=== PATIENT | female | born 1945 | race Caucasian/White ===

== ENCOUNTER → 2017-10-22 | Outpatient (CLI) | payer MEDICARE ==
[~2017-10-22] MED LIST: GADOBENATE DIMEGLUMINE 1 ML IV ONE
[2017-10-22 09:04] LABS: BLOOD UREA NITROGEN 9 mg/dL (7-26); BUN/CREATININE RATIO 12 (6-25); CREATININE, SERUM 0.75 mg/dL (0.57-1.11); EST GLOMERULAR FILTRATION RATE > 60 ML/MIN (60-)
--- NOTE | 2017-10-22 11:50 | Diagnostic Imaging Report ---
EXAMINATION: MRI of the brain with and without contrast HISTORY: Dizziness, headaches, also inability to talk COMPARISON: None. TECHNIQUE: Pre-contrast: Sagittal T2; axial T1-IR, T2, MPGR, DWI, FLAIR; Post-contrast: axial and coronal T1. Intravenous contrast: 10 mL of MultiHance. IMAGE QUALITY: Adequate. FINDINGS: Parenchyma: 1. Few scattered bilateral supra and infratentorial T2 and FLAIR hyperintense foci, most likely age-appropriate mild chronic microvascular ischemic changes. 2. No mass or hemorrhage. No acute or chronic vascular insult. No abnormal enhancement Skull: No abnormal signal intensity or enhancement. Major arteries: Expected flow voids present. Dural sinuses: Expected flow voids present. Ventricles: No hydrocephalus or displacement. Subarachnoid spaces: No abnormal signal intensity or enhancement. Brain volume: Normal for age. Foramen magnum: No mass, Chiari malformation, or basilar invagination. Sella: No gross mass. Paranasal/mastoid sinuses: Unremarkable. IMPRESSION: Mild chronic microvascular ischemic changes, otherwise no intracranial abnormalities, particularly no mass, hydrocephalus or infarct. Signed by: Dr. Yanet Peguero M.D. on 10/22/2017 11:46 AM
== END ==
LOC: MRI 08:13
PROVIDERS: ATTEND Student in an Organized Health Care Education/Training Program
DX: R68.89 Other general symptoms and signs (principal)
CPT/HCPCS: 36415; 70553; 82565; 84520

== ENCOUNTER → 2018-04-16 | Outpatient (CLI) | payer MEDICARE ==
[~2018-04-16] MED LIST changes: -GADOBENATE DIMEGLUMINE 1 ML IV ONE; +IOPAMIDOL 370 MG/ML 200 ML INFUS..BTL INJ ONE; +SODIUM CHLORIDE 0.9% 100 ML 100 ML ONE
[2018-04-16 08:06] LABS: BLOOD UREA NITROGEN 11 mg/dL (7-26); BUN/CREATININE RATIO 14 (6-25); CREATININE, SERUM 0.77 mg/dL (0.57-1.11); EST GLOMERULAR FILTRATION RATE > 60 ML/MIN (60-)
--- NOTE | 2018-04-16 11:04 | Diagnostic Imaging Report ---
History:Patient states she has been blacking out, Comparison studies:None Technique: Axial images were obtained from the thoracic inlet. Coronal and sagittal images reconstructed from the axial data. Intravenous contrast: 100 cc of Omnipaque 300. Findings: Percentage of stenosis will be based on the NASCET criteria Aortic arch and major vessels: Patent. Common origin of the brachiocephalic trunk and left common carotid artery. Nonstenotic atherosclerotic calcifications at the origin of the right subclavian artery Common carotid arteries: Patent. No abnormalities. Right internal carotid artery: Patent. No abnormalities. Left internal carotid artery: Patent. Nonstenotic atherosclerotic calcifications at the left bulb. Right vertebral artery: Patent. No abnormalities. Left vertebral artery: Patent. Less than 10% stenosis of the intracranial V4 segment. The remaining vertebral artery is unremarkable. Basilar artery: Patent. No abnormalities. Posterior cerebral arteries: Patent. No abnormalities. Hypoplastic right P1 with origin on the right. Anatomical variants: Acom: Patent . Pcoms: Patent. Vertebral arteries: Col-dominant Mild mucosal thickening of the right maxillary sinus. IMPRESSION: Cervical CTA: 1. Nonstenotic calcification of the left carotid bulb, the remaining vasculature appears unremarkable Intracranial CTA: 1. No hemodynamically significant stenosis of the intracranial circulation, no other abnormality. Signed by: DR Dominick Saunders M.D. on 04/16/2018 11:01 AM
== END ==
LOC: CT 07:27
PROVIDERS: ATTEND Student in an Organized Health Care Education/Training Program
DX: G43.109 Migraine with aura, not intractable, without status migrainosus (principal); R68.89 Other general symptoms and signs
CPT/HCPCS: 36415; 70496; 70498; 82565; 84520; Q9967

== ENCOUNTER → 2018-12-08 | Day surgery (SDC) | payer MEDICARE ==
[2018-12-06 12:03] LABS: BASOPHILS % 0.4 % (0.0-1.0); EOSINOPHILS # (AUTO) 0.1 (0.0-0.4); EOSINOPHILS % 1.4 % (0.0-6.0); HEMATOCRIT 41.3 % (34.2-44.1); HEMOGLOBIN 13.8 g/dL (12.0-16.0); LYMPHOCYTES # (AUTO) 1.2 (1.0-3.2); LYMPHOCYTES % 17.1 % (18.0-39.1); MEAN CORPUSCULAR HEMOGLOBIN 30.7 pg (28-32); MEAN CORPUSCULAR HGB CONC 33.4 g/dL (31-35); MONOCYTES # (AUTO) 0.7 (0.2-0.8); MONOCYTES % 9.2 % (4.4-11.3); NEUTROPHILS # (AUTO) 5.2 (2.1-6.9); NEUTROPHILS % 71.6 % (38.7-80.0); PLATELET COUNT 246 x10e3/uL (140-360); RED BLOOD COUNT 4.49 x10e6/uL (3.6-5.1); RED CELL DISTRIBUTION WIDTH 12.1 % (11.7-14.4)
[2018-12-06 12:16] LABS: INR 0.87; PROTHROMBIN TIME 12.3 seconds (11.9-14.5)
[2018-12-06 12:17] LABS: PARTIAL THROMBOPLASTIN TIME 24.7 seconds (23.8-35.5)
[2018-12-06 12:26] LABS: ALANINE AMINOTRANSFERASE 16 IU/L (0-55); ALBUMIN 4.4 g/dL (3.5-5.0); ALBUMIN/GLOBULIN RATIO 1.3 (0.8-2.0); ALKALINE PHOSPHATASE 56 IU/L (40-150); BLOOD UREA NITROGEN 8 mg/dL (7-26); BUN/CREATININE RATIO 11 (6-25); CALCIUM 9.7 mg/dL (8.4-10.2); CARBON DIOXIDE 29 mmol/L (22-29); CHLORIDE 98 mmol/L (98-107); CREATININE, SERUM 0.72 mg/dL (0.57-1.11); EST GLOMERULAR FILTRATION RATE > 60 ML/MIN (60-); GLUCOSE 94 mg/dL (74-118); SODIUM 135 mmol/L (136-145)
--- NOTE | 2018-12-06 12:46 | Diagnostic Imaging Report ---
EXAM: CHEST 2 VIEWS, PA and lateral DATE: 12/06/2018 Time stamp on exam: 11:56 AM INDICATION: Preoperative COMPARISON: None FINDINGS: LINES/TUBES: None LUNGS: No consolidations or edema. Lungs are hyperexpanded. Prominent nipple shadow overlies the right lung base. PLEURA: No effusions or pneumothorax. HEART AND MEDIASTINUM: Normal size and contour. BONES AND SOFT TISSUES: No acute findings. Multiple right axillary vascular clips. IMPRESSION: No acute thoracic abnormality. Signed by: Dr. Sami Land DO on 12/06/2018 12:43 PM
[~2018-12-08] VITALS: Ht 167.6 cm; Wt 49.9 kg
[2018-12-08] VITALS (16 sets, daily range): BP systolic 99–148; BP diastolic 49–88
[~2018-12-08] MED LIST changes: +ACETAMINOPHEN 325 MG TAB ONE; +ASPIRIN EC81 MG PO; +CALCIUM PO; +CARVEDILOL3.125 MG PO; +CENTRUM SILVER1 EAC3 PO; +DIGOXIN125 MCG PO; +DIPHENHYDRAMINE HCL 25 MG CAP ONE; +FENTANYL CITRATE/PF 100MCG/2 ML INJ ONE; +HEPARIN SOD/SOD CHLORIDE 2,000 ML ONE; +LIDOCAINE HCL 2% LOCAL 20 ML VIAL ONE; +LISINOPRIL2.5 MG PO; +MIDAZOLAM HCL 2 MG/2 ML VIAL ONE; +MORPHINE SULFATE INJ 4 MG/ML INJ 1ML ONE; +POTASSIUM PO; +RETAINE MGD EY1 EACH OP; +SIMVASTATIN20 MG PO; +SODIUM CHLORIDE 0.45% 1,000 ML ONE; -SODIUM CHLORIDE 0.9% 100 ML 100 ML ONE; +SODIUM CHLORIDE 0.9% 1000ML 1,000 ML ONE; +TRAVATAN Z5 ML OP; +VERAPAMIL HCL 2.5 MG/ML 2 ML VIAL ONE; +[UNRECOGNIZED DRUG - OTHER] OP
--- OUTSIDE RECORDS SUMMARY | 2018-12-08 07:50 | XMS REPORT | Continuity of Care Document ---
Author Author [facility] Interface Address Unknown Phone Unavailable Problems Problem Status Onset Date Classification Date Reported Comments Source Acute upper respiratory infection 12/04/2017 Diagnosis 12/09/2017 [facility] Body mass index less than 20 12/04/2017 Diagnosis 12/09/2017 [facility] At risk for falls 12/04/2017 Diagnosis 12/09/2017 [facility] Depression screening 12/04/2017 Diagnosis 12/09/2017 [facility] Herpes zoster 03/25/2017 Diagnosis 12/09/2017 [facility] Pneumococcal vaccination 10/03/2016 Diagnosis 12/09/2017 [facility] Vertigo 10/03/2016 Problem 12/09/2017 [facility] Mixed hyperlipidemia 06/26/2016 Diagnosis 12/09/2017 [facility] Mixed Hyperlipidemia 06/26/2016 Problem 12/09/2017 [facility] Tachycardia 06/26/2016 Problem 12/09/2017 [facility] Adult health examination 06/12/2016 Diagnosis 12/09/2017 [facility] Pure hypercholesterolemia 06/12/2016 Diagnosis 12/09/2017 [facility] Migraine with aura 06/12/2016 Diagnosis 12/09/2017 [facility] Pure Hypercholesterolemia 06/12/2016 Problem 12/09/2017 [facility] Migraine with Aura 06/12/2016 Problem 12/09/2017 [facility] Medications Medication Details Route Status Patient Instructions Ordering Provider Order Date Source Diltiazem Hydrochloride 60 MG Oral Tablet diltiazem 60 mg tablet Active 12/04/2017 [facility] Simvastatin 20 MG Oral Tablet simvastatin 20 mg tablet Take 1 tablet every day by oral route in the evening. Active 12/04/2017 [facility] Acyclovir 0.05 MG/MG Topical Ointment acyclovir 5 % topical ointment 1-2 TIMES A DAY Active 04/01/2017 [facility] Triamcinolone Acetonide 1 MG/ML Topical Cream triamcinolone acetonide 0.1 % topical cream BID Active 04/01/2017 [facility] 0.5 ML Bordetella pertussis filamentous hemagglutinin vaccine, inactivated 0.01 MG/ML / Bordetella pertussis fimbriae 2/3 vaccine, inactivated 0.01 MG/ML / Bordetella pertussis pertactin vaccine, inactivated 0.006 MG/ML / Bordetella pertussis toxoid vaccine, inactivated 0.005 MG/ML / diphtheria toxoid vaccine, inactivated 4 UNT/ML / tetanus toxoid vaccine, inactivated 10 UNT/ML Prefilled Syringe [Adacel] Adacel (Tdap Adolesn/Adult)(PF)2 Lf-(2.5-5-3-5)-5 Lf/0.5 mL IM syringe Active 03/25/2017 [facility] gabapentin 100 MG Oral Capsule gabapentin 100 mg capsule Active 03/25/2017 [facility] Meclizine Hydrochloride 12.5 MG Oral Tablet meclizine 12.5 mg tablet Active 03/25/2017 [facility] 0.65 ML Varicella-Zoster Virus Vaccine Live ([employer] strain [id number] UNT/ML Injection [Zostavax] Zostavax (PF) 19,400 unit/0.65 mL subcutaneous suspension Active 03/25/2017 [facility] Aspirin 325 MG / butalbital 50 MG / Caffeine 40 MG / Codeine Phosphate 30 MG Oral Capsule [Ascomp] Ascomp with Codeine 30 mg-50 mg-325 mg- 40 mg capsule Take 1 capsule as needed by oral route. Active 06/26/2016 [facility] 24 HR Diltiazem Hydrochloride 120 MG Extended Release Oral Capsule [Cartia] Cartia XT 120 mg capsule,extended release Active 06/12/2016 [facility] 24 HR Diltiazem Hydrochloride 180 MG Extended Release Oral Capsule [Cartia] Cartia XT 180 mg capsule,extended release Active 06/12/2016 [facility] Cyclobenzaprine hydrochloride 5 MG Oral Tablet cyclobenzaprine 5 mg tablet Active 06/12/2016 [facility] Diclofenac Sodium 0.03 MG/MG Topical Gel diclofenac 3 % topical gel Active 06/12/2016 [facility] meloxicam 15 MG Oral Tablet meloxicam 15 mg tablet Active 06/12/2016 [facility] Ofloxacin 3 MG/ML Otic Solution ofloxacin 0.3 % ear drops Active 06/12/2016 [facility] Benadryl Benadryl 1 TAB EVERY HS Active [facility] benzonatate 200 MG Oral Capsule benzonatate 200 mg capsule Take 1 capsule 3 times a day by oral route as needed for 10 days. Active [facility] Aspirin 325 MG / butalbital 50 MG / Caffeine 40 MG Oral Capsule [id number]-zacbipxm 50 mg-325 mg-40 mg capsule Active [facility] Centrum Silver Centrum Silver 1 TAB EVERY DAY Active [facility] cetirizine hydrochloride 10 MG Oral Tablet cetirizine 10 mg tablet Take 1 tablet every day by oral route. Active [facility] coenzyme Q10 200 MG Oral Capsule Co Q-10 200 mg capsule QD Active [facility] Diltiazem Hydrochloride 30 MG Oral Tablet diltiazem 30 mg tablet Take 1 tablet 3 times a day by oral route. Active [facility] Fish Oil Fish Oil QD Active [facility] Fluticasone propionate 0.05 MG/ACTUAT Metered Dose Nasal [place] fluticasone 50 mcg/actuation nasal spray,suspension [place] 1 spray every day by intranasal route. Active [facility] Longs Adult Low Strength ASA 81 mg tablet,delayed release Longs Adult Low Strength ASA 81 mg tablet,delayed release Take 1 tablet every day by oral route. Active [facility] Melatonin 10 MG Oral Tablet melatonin 10 mg tablet Take 1 tablet every day by oral route as needed. Active [facility] potassium 99 mg tablet potassium 99 mg tablet QD Active [facility] travoprost 0.04 MG/ML Ophthalmic Solution Travatan (with benzalkonium) 0.004 % eye drops INSTILL 1 DROP INTO EACH EYE(S) BY OPHTHALMIC ROUTE ONCE DAILY Active [facility] lifitegrast 50 MG/ML Ophthalmic Solution [Xiidra] Xiidra 5 % eye drops in a dropperette Active [facility] Azithromycin 250 MG Oral Tablet Zithromax Z-Mario 250 mg tablet TAKE 2 TABLETS (500 MG) BY ORAL ROUTE ONCE DAILY FOR 1 DAY THEN 1 TABLET (250 MG) BY ORAL ROUTE ONCE DAILY FOR 4 DAYS Active [facility] Allergies, Adverse Reactions, Alerts Substance Category Reaction Severity Reaction type Status Date Reported Comments Source Vicodin Allergy to substance 06/12/2016 [facility] Immunizations Immunization Date Given Site Status Last Updated Comments Source influenza, high dose seasonal 06/21/2017 completed [facility] pneumococcal conjugate PCV 13 10/03/2016 completed [facility] influenza, high dose seasonal 06/02/2016 completed [facility] pneumococcal, unspecified formulation 04/21/2015 completed [facility] zoster 04/21/2015 [facility] Tdap 09/10/2005 [facility] Results Order Name Results Value Reference Range Date Interpretation Comments Source Comprehensive metabolic 1999 panel - Serum or Plasma glucose 93 mg/dL 65 - 99 03/26/2017 [facility] Comprehensive metabolic 1999 panel - Serum or Plasma urea nitrogen (BUN) 7 mg/dL 7 - 25 03/26/2017 [facility] Comprehensive metabolic 1999 panel - Serum or Plasma creatinine 0.65 mg/dL 0.60 - 0.93 03/26/2017 [facility] Comprehensive metabolic 1999 panel - Serum or Plasma eGFR non-afr. cymro 90 mL/min/1.73m2 > or=60 03/26/2017 [facility] Comprehensive metabolic 1999 panel - Serum or Plasma eGFR 104 mL/min/1.73m2 > or=60 03/26/2017 [facility] Comprehensive metabolic 1999 panel - Serum or Plasma BUN/creatinine ratio not applicable 6 - 22 03/26/2017 [facility] Comprehensive metabolic 1999 panel - Serum or Plasma sodium 142 mmol/L 135 - 146 03/26/2017 [facility] Comprehensive metabolic 1999 panel - Serum or Plasma potassium 4.6 mmol/L 3.5 - 5.3 03/26/2017 [facility] Comprehensive metabolic 1999 panel - Serum or Plasma chloride 106 mmol/L 98 - 110 03/26/2017 [facility] Comprehensive metabolic 1999 panel - Serum or Plasma carbon dioxide 30 mmol/L 20 - 31 03/26/2017 [facility] Comprehensive metabolic 1999 panel - Serum or Plasma calcium 9.6 mg/dL 8.6 - 10.4 03/26/2017 [facility] Comprehensive metabolic 1999 panel - Serum or Plasma protein, total 6.4 g/dL 6.1 - 8.1 03/26/2017 [facility] Comprehensive metabolic 1999 panel - Serum or Plasma albumin 4.4 g/dL 3.6 - 5.1 03/26/2017 [facility] Comprehensive metabolic 1999 panel - Serum or Plasma globulin 2.0 g/dL_(calc) 1.9 - 3.7 03/26/2017 [facility] Comprehensive metabolic 1999 panel - Serum or Plasma albumin/globulin ratio 2.2 (calc) 1.0 - 2.5 03/26/2017 [facility] Comprehensive metabolic 1999 panel - Serum or Plasma bilirubin, total 0.3 mg/dL 0.2 - 1.2 03/26/2017 [facility] Comprehensive metabolic 1999 panel - Serum or Plasma alkaline phosphatase 52 U/L 33 - 130 03/26/2017 [facility] metabolic 1999 panel - Serum or Plasma AST 15 U/L 10 - 35 03/26/2017 [facility] metabolic 1999 panel - Serum or Plasma ALT 9 U/L 6 - 29 03/26/2017 [facility] Lipid 1995 panel - Serum or Plasma cholesterol, total 174 mg/dL 125 - 200 03/26/2017 [facility] Lipid 1995 panel - Serum or Plasma HDL cholesterol 53 mg/dL > or=46 03/26/2017 [facility] Lipid [facility] panel - Serum or Plasma triglycerides 160 mg/dL <150 03/26/2017 [facility] Lipid 1995 panel - Serum or Plasma LDL-cholesterol 89 mg/dL_(calc) <130 03/26/2017 [facility] Lipid [facility] panel - Serum or Plasma chol/HDLC ratio 3.3 (calc) < or=5.0 03/26/2017 [facility] Lipid 1995 panel - Serum or Plasma non HDL cholesterol 121 mg/dL_(calc) 03/26/2017 [facility] Hemoglobin A1c/Hemoglobin.total in Blood hemoglobin A1C 5.3 %_of_total_HGB <5.7 03/26/2017 [facility] Hemoglobin A1c/Hemoglobin.total in Blood EAG (mg/dL) 105 (calc) 03/26/2017 [facility] Hemoglobin A1c/Hemoglobin.total in Blood EAG (mmol/L) 5.8 (calc) 03/26/2017 [facility] CBC W Auto Differential panel - Blood white blood cell count 5.1 thousand/uL 3.8 - 10.8 09/27/2016 [facility] CBC W Auto Differential panel - Blood red blood cell count 4.36 million/uL 3.80 - 5.10 09/27/2016 [facility] CBC W Auto Differential panel - Blood hemoglobin 13.0 g/dL 11.7 - 15.5 09/27/2016 [facility] CBC W Auto Differential panel - Blood hematocrit 38.7 % 35.0 - 45.0 09/27/2016 [facility] CBC W Auto Differential panel - Blood MCV 88.8 fL 80.0 - 100.0 09/27/2016 [facility] CBC W Auto Differential panel - Blood MCH 29.9 pg 27.0 - 33.0 09/27/2016 [facility] CBC W Auto Differential panel - Blood MCHC 33.7 g/dL 32.0 - 36.0 09/27/2016 [facility] CBC W Auto Differential panel - Blood RDW 12.9 % 11.0 - 15.0 09/27/2016 [facility] CBC W Auto Differential panel - Blood platelet count 236 thousand/uL 140 - 400 09/27/2016 [facility] CBC W Auto Differential panel - Blood MPV 7.8 fL 7.5 - 11.5 09/27/2016 [facility] CBC W Auto Differential panel - Blood absolute neutrophils 3534 cells/uL 1500 - 7800 09/27/2016 [facility] CBC W Auto Differential panel - Blood absolute lymphocytes 1153 cells/uL 850 - 3900 09/27/2016 [facility] CBC W Auto Differential panel - Blood absolute monocytes 311 cells/uL 200 - 950 09/27/2016 [facility] CBC W Auto Differential panel - Blood absolute eosinophils 92 cells/uL 15 - 500 09/27/2016 [facility] CBC W Auto Differential panel - Blood absolute basophils 10 cells/uL 0 - 200 09/27/2016 [facility] CBC W Auto Differential panel - Blood neutrophils 69.3 % 09/27/2016 [facility] CBC W Auto Differential panel - Blood lymphocytes 22.6 % 09/27/2016 [facility] CBC W Auto Differential panel - Blood monocytes 6.1 % 09/27/2016 [facility] CBC W Auto Differential panel - Blood eosinophils 1.8 % 09/27/2016 [facility] CBC W Auto Differential panel - Blood basophils 0.2 % 09/27/2016 [facility] Thyrotropin [Units/volume] in Serum or Plasma TSH 0.91 mIU/L 0.40 - 4.50 09/27/2016 [facility] Comprehensive metabolic 1999 panel - Serum or Plasma glucose 95 mg/dL 65 - 99 09/27/2016 [facility] Comprehensive metabolic 1999 panel - Serum or Plasma urea nitrogen (BUN) 9 mg/dL 7 - 25 09/27/2016 [facility] Comprehensive metabolic 1999 panel - Serum or Plasma creatinine 0.62 mg/dL 0.60 - 0.93 09/27/2016 [facility] Comprehensive metabolic 1999 panel - Serum or Plasma eGFR non-afr. cymro 91 mL/min/1.73m2 > or=60 09/27/2016 [facility] Comprehensive metabolic 1999 panel - Serum or Plasma eGFR 106 mL/min/1.73m2 > or=60 09/27/2016 [facility] Comprehensive metabolic 1999 panel - Serum or Plasma BUN/creatinine ratio not applicable 6 - 22 09/27/2016 [facility] Comprehensive metabolic 1999 panel - Serum or Plasma sodium 139 mmol/L 135 - 146 09/27/2016 [facility] Comprehensive metabolic 1999 panel - Serum or Plasma potassium 4.2 mmol/L 3.5 - 5.3 09/27/2016 [facility] Comprehensive metabolic 1999 panel - Serum or Plasma chloride 102 mmol/L 98 - 110 09/27/2016 [facility] Comprehensive metabolic 1999 panel - Serum or Plasma carbon dioxide 30 mmol/L 20 - 31 09/27/2016 [facility] Comprehensive metabolic 1999 panel - Serum or Plasma calcium 9.6 mg/dL 8.6 - 10.4 09/27/2016 [facility] Comprehensive metabolic 1999 panel - Serum or Plasma protein, total 6.9 g/dL 6.1 - 8.1 09/27/2016 [facility] Comprehensive metabolic 1999 panel - Serum or Plasma albumin 4.5 g/dL 3.6 - 5.1 09/27/2016 [facility] Comprehensive metabolic 1999 panel - Serum or Plasma globulin 2.4 g/dL_(calc) 1.9 - 3.7 09/27/2016 [facility] Comprehensive metabolic 1999 panel - Serum or Plasma albumin/globulin ratio 1.9 (calc) 1.0 - 2.5 09/27/2016 [facility] Comprehensive metabolic 1999 panel - Serum or Plasma bilirubin, total 0.3 mg/dL 0.2 - 1.2 09/27/2016 [facility] Comprehensive metabolic 1999 panel - Serum or Plasma alkaline phosphatase 55 U/L 33 - 130 09/27/2016 [facility] Comprehensive metabolic 1999 panel - Serum or Plasma AST 17 U/L 10 - 35 09/27/2016 [facility] Comprehensive metabolic 1999 panel - Serum or Plasma ALT 10 U/L 6 - 29 09/27/2016 [facility] Lipid 1995 panel - Serum or Plasma cholesterol, total 192 mg/dL 125 - 200 09/27/2016 [facility] Lipid 1995 panel - Serum or Plasma HDL cholesterol 59 mg/dL > or=46 09/27/2016 normal [facility] Lipid 1996 panel - Serum or Plasma triglycerides 133 mg/dL <150 09/27/2016 normal [facility] Lipid 1996 panel - Serum or Plasma LDL-cholesterol 106 mg/dL_(calc) <130 09/27/2016 normal [facility] Lipid 1996 panel - Serum or Plasma chol/HDLC ratio 3.3 (calc) < or=5.0 09/27/2016 normal [facility] Lipid 1996 panel - Serum or Plasma non HDL cholesterol 133 mg/dL_(calc) 09/27/2016 normal [facility] Hepatitis C virus RNA [Units/volume] (viral load) in Serum or Plasma by Probe and target amplification method hepatitis C antibody non-reactive non 06/13/2016 [facility] Hepatitis C virus RNA [Units/volume] (viral load) in Serum or Plasma by Probe and target amplification method signal to cut-off 0.02 <1.00 06/13/2016 normal [facility] Lipid 1995 panel - Serum or Plasma HDL 53.0 mg/dL 40.0 - 60.0 06/13/2016 [facility] Lipid 1995 panel - Serum or Plasma triglyceride 272.0 mg/dL 0.0 - 149.0 06/13/2016 high [facility] Lipid 1995 panel - Serum or Plasma VLDL calc. 54.4 mg/dL 06/13/2016 [facility] Lipid 1995 panel - Serum or Plasma cholesterol/HDL ratio 3.7 mg/dL 06/13/2016 [facility] Lipid 1995 panel - Serum or Plasma non-HDL cholesterol calc. 144.0 mg/dL 0.0 - 160.0 06/13/2016 [facility] Lipid 1995 panel - Serum or Plasma cholesterol 197.0 mg/dL 0.0 - 199.0 06/13/2016 [facility] Lipid 1995 panel - Serum or Plasma LDL calc. 89.6 mg/dL 0.0 - 130.0 06/13/2016 [facility] Vital Signs Vital Sign Value Date Comments Source Diastolic (mm Hg) 58 12/04/2017 [facility] Height 65.9 12/04/2017 [facility] Systolic (mm Hg) 110 12/04/2017 [facility] Weight 110 12/04/2017 [facility] Diastolic (mm Hg) 72 04/01/2017 [facility] Height 65.9 04/01/2017 [facility] Systolic (mm Hg) 130 04/01/2017 [facility] Weight 113 04/01/2017 [facility] Diastolic (mm Hg) 70 03/25/2017 [facility] Height 65.9 03/25/2017 [facility] Systolic (mm Hg) 116 03/25/2017 [facility] Weight 113 03/25/2017 [facility] Diastolic (mm Hg) 71 10/03/2016 [facility] Height 65.9 10/03/2016 [facility] Systolic (mm Hg) 132 10/03/2016 [facility] Weight 116 10/03/2016 [facility] Diastolic (mm Hg) 68 09/26/2016 [facility] Height 65.9 09/26/2016 [facility] Systolic (mm Hg) 110 09/26/2016 [facility] Weight 116 09/26/2016 [facility] Diastolic (mm Hg) 63 06/26/2016 [facility] Height 65.5 06/26/2016 [facility] Systolic (mm Hg) 122 06/26/2016 [facility] Weight 118 06/26/2016 [facility] Diastolic (mm Hg) 62 06/12/2016 [facility] Height 65.5 06/12/2016 [facility] Systolic (mm Hg) 144 06/12/2016 [facility] Weight 117 06/12/2016 [facility] Encounters Location Location Details Encounter Type Encounter Number Reason For Visit Attending Provider ADM Date DC Date Status Source [place] [facility] MD: [address] [place] [address], Ph. [id number] Barb Alberts 06/12/2016 [facility] [place] - [facility] Barb Alberts MD: [address] [place] [address], Ph. [id number] Barb Alberts 06/26/2016 [facility] Barb Alberts MD: [address] [place] [address], Ph. [id number] Barb Aristeo 09/26/2016 [facility] Barb Alberts MD: [facility] [place] [address], Ph. [id number] Barb Alberts 10/03/2016 [facility] Barb Alberts MD: [address] [place] [address], Ph. [id number] Barb Alberts 03/25/2017 [facility] Barb Alberts MD: [address] [place] [address], Ph. [id number] Barb Alberts 04/01/2017 [facility] Estee Tobar MD: [address] [place] [address], Ph. [id number] Estee Tobar 12/04/2017 [facility] Procedures Procedure Code Date Perfomer Comments Source bone density study 04/21/2016 [facility] Colonoscopy 09/21/2010 [facility] Cataract Surgery [facility] Hand Surgery [facility] Elbow Arthroscopy/surgery [id number] [facility] Tubal Ligation [facility] Breast Surgery [facility]
--- OUTSIDE RECORDS SUMMARY | 2018-12-08 07:51 | XMS REPORT ---
Author [facility] Address Unknown Phone Unavailable Care Team Providers Care Instructor Physical Name Role Phone ANA ROSA BARKLEY Unavailable Unavailable Lisa SCOTT Unavailable Unavailable Problems This patient has no known problems. Allergies, Adverse Reactions, Alerts This patient has no known allergies or adverse reactions. Medications This patient has no known medications. Results Test Description Test Time Test Comments Text Results Atomic Results Result Comments CHEST 2 VIEWS 2018-12-06 12:41:00 [place] [address] Patient Name: ABDULKADIR WINN MR #: [id number] : 1945 Age/Sex: 73/F Req #: [id number] Adm Physician: Ordered by: ANA ROSA BARKLEY MD Report #: [id number] Location: [facility] Room/Bed: Procedure: [id number] DX/CHEST 2 VIEWS Exam Date: 12/06/18 Exam Time: 1200 REPORT STATUS: Signed EXAM: CHEST 2 VIEWS, PA and lateral DATE: 12/06/[address] [facility] on exam: 11:56 AM INDICATION: Preoperative COMPARISON: None FINDINGS: LINES/TUBES: None LUNGS: No consolidations or edema. Lungs are hyperexpanded. Prominent nipple shadow overlies the right lung base. PLEURA: No effusions or pneumothorax. HEART AND MEDIASTINUM: Normal size and contour. BONES AND SOFT TISSUES: No acute findings. Multiple right axillary vascular clips. IMPRESSION: No acute thoracic abnormality. Signed by: Dr. Lionel Land DO on 12/06/2018 12:43 PM Dictated By: LIONEL LAND DO 124 Transcribed By: ISMAEL on 12/06/18 1243 COPY TO: ANA ROSA BARKLEY MD CTA NECK 2018-04-16 10:48:00 [place] [address] Patient Name: ABDULKADIR WINN MR #: [id number] : 1945 Age/Sex: 72/F Req #: [id number] Adm Physician: Ordered by: GO SCOTT M.D. Report #: [id number] Location: CT Room/Bed: Procedure: [id number] CT/CTA NECK Exam Date: 04/16/18 Exam Time: 0825 REPORT STATUS: Signed History:Patient states she has been blacking out, Comparison studies:None Technique: Axial images were obtained from the thoracic inlet. Coronal and sagittal images reconstructed from the axial data. Intravenous contrast: 100 cc of Omnipaque 300. Findings: Percentage of stenosis will be based on the NASCET criteria Aortic arch and major vessels: Patent. Common origin of the brachiocephalic trunk and left common carotid artery. Nonstenotic atherosclerotic calcifications at the origin of the right subclavian artery Common carotid arteries: Patent. No abnormalities. Right internal carotid artery: Patent. No abnormalities. Left internal carotid artery: Patent. Nonstenotic atherosclerotic calcifications at the left bulb. Right vertebral artery: Patent. No abnormalities. Left v ertebral artery: Patent. Less than 10% stenosis of the intracranial V4 segment. The remaining vertebral artery is unremarkable. Basilar artery: Patent. No abnormalities. Posterior cerebral arteries: Patent. No abnormalities. Hypoplastic right P1 with origin on the right. Anatomical variants: Acom: Patent . Pcoms: Patent. Vertebral arteries: Col-dominant Mild mucosal thickening of the right maxillary sinus. IMPRESSION: Cervical CTA: 1. Nonstenotic calcification of the left carotid bulb, the remaining vasculature appears unremarkable Intracranial CTA: 1. No hemodynamically significant stenosis of the intracranial circulation, no other abnormality. Signed by: DR Dominick Saunders M.D. on 04/16/2018 11:01 AM Dictated By: DOMINICK HANEY MD 00 Transcribed By: ISMAEL on 04/16/181100 COPY TO: GO SCOTT M.D. CTA BRAIN 2018-04-16 10:48:00 [place] [address] Patient Name: ABDULKADIR WINN MR #: [id number] : 1945 Age/Sex: 72/F Req #: [id number] Adm Physician: Ordered by: GO SCOTT M.D. Report #: [id number] Location: CT Room/Bed: Procedure: [id number] CT/CTA BRAIN Exam Date: 04/16/18 Exam Time: 824 REPORT STATUS: Signed History:Patient states she has been blacking out, Comparison studies:None Technique: Axial images were obtained from the thoracic inlet. Coronal and sagittal images reconstructed from the axial data. Intravenous contrast: 100 cc of Omnipaque 300. Findings: Percentage of stenosis will be based on the NASCET criteria Aortic arch and major vessels: Patent. Common origin of the brachiocephalic trunk and left common carotid artery. Nonstenotic atherosclerotic calcifications at the origin of the right subclavian artery Common carotid arteries: Patent. No abnormalities. Right internal carotid artery: Patent. No abnormalities. Left internal carotid artery: Patent. Nonstenotic atherosclerotic calcifications at the left bulb. Right vertebral artery: Patent. No abnormalities. Left vertebral artery: Patent. Less than 10% stenosis of the intracranial V4 segment. The remaining vertebral artery is unremarkable. Basilar artery: Patent. No abnormalities. Posterior cerebral arteries: Patent. No abnormalities. Hypoplastic right P1 with origin on the right. Anatomical variants: Acom: Patent . Pcoms: Patent. Vertebral arteries: Col-dominant Mild mucosal thickening of the right maxillary sinus. IMPRESSION: Cervical CTA: 1. Nonstenotic calcification of the left carotid bulb, the remaining vasculature appears unremarkable Intracranial CTA: 1. No hemodynamically significant stenosis of the intracranial circulation, no other abnormality. Signed by: DR Dominick Saunders M.D. on 04/16/2018 11:01 AM Dictated By: DOMINICK HANEY MD 110 Transcribed By: ISMAEL on 04/16/18 110 COPY TO: GO SCOTT M.D. MRI BRAIN [place] [address] Patient Name: ABDULKADIR WINN MR #: [id number] : 1945 Age/Sex: 72/F Req #: [id number] Adm Physician: Ordered by: GO SCOTT M.D. Report #: [id number] Location: MRI Room/Bed: Procedure: [id number] MRI/MRI BRAIN WOW Exam Date: Exam Time: REPORT STATUS: Signed EXAMINATION: MRI of the brain with and without contrast HISTORY: Dizziness, headaches, also inability to talk COMPARISON: None. TECHNIQUE: Pre-contrast: Sagittal T2; axial T1-IR, T2, MPGR, DWI, FLAIR; Post-contrast: axial and coronal T1. Intravenous contrast: 10 mL of MultiHance. IMAGE QUALITY: Adequate. FINDINGS: Parenchyma: 1. Few scattered bilateral supra and infratentorial T2 and FLAIR hyperintense foci, most likely age-appropriate mild chronic microvascular ischemic changes. 2. No mass or hemorrhage. No acute or chronic vascular insult. No abnormal enhancement Skull: No abnormal signal intensity or enhancement. Major arteries: Expected flow voids present. Dural sinuses: Expected flow voids present. Ventricles: No hydrocephalus or displacement. Subarachnoid spaces: No abnormal signal intensity or enhancement. Brain volume: Normal for age. Foramen magnum: No mass, Chiari malformation, or basilar invagination. Sella: No gross mass. Paranasal/mastoid sinuses: Unremarkable. IMPRESSION: Mild chronic microvascular ischemic changes, otherwise no intracranial abnormalities, particularly no mass, hydrocephalus or infarct. Signed by: Dr. Jes Peguero M.D. on 10/22/2017 11:46 AM Dictated By: JES PEGUERO MD 1146 Transcribed By: ISMAEL on 10/22/17 1146 COPY TO: GO SCOTT M.D.
--- OUTSIDE RECORDS SUMMARY | 2018-12-08 07:51 | XMS REPORT ---
Author Organization Unknown Address [address] [place] [address] Phone [phone] Care Team Providers Care Guest Room Attendant Name Role Phone ANA ROSA BARKLEY MD 82 [phone] DALY CRUZ MD 111 [phone] CHUN MARTINEZ MD 258 [phone] Allergies Code Code System Name Reaction Severity Status Onset 073242 RxNorm Vicodin Active Medications Name Status Start Date Stop Date acyclovir 5 % topical ointment 1-2 TIMES A DAY Completed 04/01/2017 Adacel (Tdap Adolesn/Adult)(PF)2 Lf-(2.5-5-3-5)-5 Lf/0.5 mL IM syringe Completed 03/25/2017 Ascomp with Codeine 30 mg-50 mg-325 mg-40 mg capsule Take 1 capsule as needed by oral route. Completed 06/26/2016 Benadryl 1 TAB EVERY HS Active Not available benzonatate 200 mg capsule Take 1 capsule 3 times a day by oral route as needed for 10 days. Active Not available ufungvxggn-amlrili-zzlghjbj 50 mg-325 mg-40 mg capsule Active Not available Cartia XT 120 mg capsule,extended release Completed 06/12/2016 Cartia XT 180 mg capsule,extended release Completed 06/12/2016 Centrum Silver 1 TAB EVERY DAY Active Not available cetirizine 10 mg tablet Take 1 tablet every day by oral route. Active Not available Co Q-10 200 mg capsule QD Active Not available cyclobenzaprine 5 mg tablet Completed 06/12/2016 diclofenac 3 % topical gel Completed 06/12/2016 diltiazem 30 mg tablet Take 1 tablet 3 times a day by oral route. Active Not available diltiazem 60 mg tablet Completed 12/04/2017 Fish Oil QD Active Not available fluticasone 50 mcg/actuation nasal spray,suspension Muddy 1 spray every day by intranasal route. Active Not available gabapentin 100 mg capsule Completed 03/25/2017 Longs Adult Low Strength ASA 81 mg tablet,delayed release Take 1 tablet every day by oral route. Active Not available meclizine 12.5 mg tablet Completed 03/25/2017 melatonin 10 mg tablet Take 1 tablet every day by oral route as needed. Active Not available meloxicam 15 mg tablet Completed 06/12/2016 ofloxacin 0.3 % ear drops Completed 06/12/2016 potassium 99 mg tablet QD Active Not available simvastatin 20 mg tablet Take 1 tablet every day by oral route in the evening. Completed 12/04/2017 Travatan (with benzalkonium) 0.004 % eye drops INSTILL 1 DROP INTO EACH EYE(S) BY OPHTHALMIC ROUTE ONCE DAILY Active Not available triamcinolone acetonide 0.1 % topical cream BID Completed 04/01/2017 Xiidra 5 % eye drops in a dropperette Active Not available Zithromax Z-Mario 250 mg tablet TAKE 2 TABLETS (500 MG) BY ORAL ROUTE ONCE DAILY FOR 1 DAY THEN 1 TABLET (250 MG) BY ORAL ROUTE ONCE DAILY FOR 4 DAYS Active Not available Zostavax (PF) 19,400 unit/0.65 mL subcutaneous suspension Completed 03/25/2017 Notes: SODIUM CHLORIDE EYE DROPS:1 DROP IN EACH EYE TWO TIMES A DAY CALCIUM 600M TAB EVERY DAY Problems Name Status Onset Date Source Pure Hypercholesterolemia Active 06/12/2016 Migraine with Aura Active 06/12/2016 Mixed Hyperlipidemia Active 06/26/2016 Tachycardia Active 06/26/2016 Vertigo Active 10/03/2016 Procedures Date Name Performed by 09/21/2010 Colonoscopy Notes: NO FILE ON EMR Information not available Cataract Surgery Notes: Bilateral Information not available Hand Surgery Notes: Bilateral Excision Nodules in Thumbs Information not available Elbow Arthroscopy/surgery Notes: Nerve Release Information not available Tubal Ligation Information not available Breast Surgery Notes: Right Lumpectomy Information not available 04/21/2016 Bone Density Study Information not available Notes: RK Bilaterally Glaucoma surgery to relief pressure Bilaterally. Lab Results Date Name Specimen Result Interpretation Description Value Range Status Address 03/25/2017 HbA1C (Hemoglobin a1C), Blood Normal Hemoglobin a1C 5.3 % of total HGB <5.7 % of total HGB Final [facility]: [address] [address], [place] EAG (mg/dL) 105 (calc) Final [facility]: [address] [facility] [address], [place] EAG (mmol/L) 5.8 (calc) Final [facility]: [address] [facility] 03/25/2017 CMP, Serum or Plasma Normal Glucose 93 mg/dL 65-99 mg/dL Final [facility]: [address] [facility] Normal Urea Nitrogen (BUN) 7 mg/dL 7-25 mg/dL Final [facility]: [address] Kendrick [address] Normal Creatinine 0.65 mg/dL 0.60-0.93 mg/dL Final [facility]: [address] Kendrick [address] Normal eGFR Non-afr. Brazilian 90 mL/min/1.73m2 > or=60 mL/min/1.73m2 Final [facility]: [address]rick [address] Normal eGFR 104 mL/min/1.73m2 > or=60 mL/min/1.73m2 Final [facility]: [address] BUN/creatinine Ratio not applicable (calc) 6-22 (calc) Final [facility]: [address] Normal Sodium 142 mmol/L 135-146 mmol/L Final [facility]: [address] Normal Potassium 4.6 mmol/L 3.5-5.3 mmol/L Final [facility]: [address] [place] [address] Normal Chloride 106 mmol/L 98-110 mmol/L Final [facility]: [address] Normal Carbon Dioxide 30 mmol/L 20-31 mmol/L Final [facility]: [address] Normal Calcium 9.6 mg/dL 8.6-10.4 mg/dL Final [facility]: [address] Normal Protein, Total 6.4 g/dL 6.1-8.1 g/dL Final [facility]: [address] Normal Albumin 4.4 g/dL 3.6-5.1 g/dL Final [facility]: [address] Normal Globulin 2.0 g/dL (calc) 1.9-3.7 g/dL (calc) Final [facility]: [address] Normal Albumin/globulin Ratio 2.2 (calc) 1.0-2.5 (calc) Final [facility]: [address] Normal Bilirubin, Total 0.3 mg/dL 0.2-1.2 mg/dL Final [facility]: [address] Normal Alkaline Phosphatase 52 U/L 33-130 U/L Final [facility]: [address] Normal Ast 15 U/L 10-35 U/L Final [facility]: [address] Normal Alt 9 U/L 6-29 U/L Final [facility]: [address] 03/25/2017 Lipid Panel, Serum Normal Cholesterol, Total 174 mg/dL 125- 200 mg/dL Final [facility]: [address] Normal HDL Cholesterol 53 mg/dL > or=46 mg/dL Final [facility]: [address] High Triglycerides 160 mg/dL <150 mg/dL Final [facility]: [address] Normal LDL-cholesterol 89 mg/dL (calc) <130 mg/dL (calc) Final [facility]: [address] Normal Chol/hdlc Ratio 3.3 (calc) < or=5.0 (calc) Final [facility]: [address] Normal Non HDL Cholesterol 121 mg/dL (calc) Final [facility]: [address] 09/26/2016 CMP, Serum or Plasma Normal Glucose 95 mg/dL 65-99 mg/dL Final [facility]: [address] Normal Urea Nitrogen (BUN) 9 mg/dL 7-25 mg/dL Final [facility]: [address] Normal Creatinine 0.62 mg/dL 0.60-0.93 mg/dL Final [facility]: [address] Normal eGFR Non-afr. Brazilian 91 mL/min/1.73m2 > or=60 mL/min/1.73m2 Final [facility]: [address] [facility] Normal eGFR 106 mL/min/1.73m2 > or=60 mL/min/1.73m2 Final [facility]: [address], [place] BUN/creatinine Ratio not applicable (calc) 6-22 (calc) Final [facility]: [address] [facility] Normal Sodium 139 mmol/L 135-146 mmol/L Final [facility]: [address] [facility] Normal Potassium 4.2 mmol/L 3.5-5.3 mmol/L Final [facility]: [address] [facility] Normal Chloride 102 mmol/L 98-110 mmol/L Final [facility]: [address] [facility] Normal Carbon Dioxide 30 mmol/L 20-31 mmol/L Final [facility]: [address] [facility] Normal Calcium 9.6 mg/dL 8.6-10.4 mg/dL Final [facility]: [address] [place] [address] Normal Protein, Total 6.9 g/dL 6.1-8.1 g/dL Final [facility]: [address] Normal Albumin 4.5 g/dL 3.6-5.1 g/dL Final [facility]: [address] [facility] Normal Globulin 2.4 g/dL (calc) 1.9-3.7 g/dL (calc) Final [facility]: [address] [facility] Normal Albumin/globulin Ratio 1.9 (calc) 1.0-2.5 (calc) Final [facility]: [address] [facility] Normal Bilirubin, Total 0.3 mg/dL 0.2-1.2 mg/dL Final [facility]: [address] [facility] Normal Alkaline Phosphatase 55 U/L 33-130 U/L Final [facility]: [address] [facility] Normal Ast 17 U/L 10-35 U/L Final [facility]: [address] [facility] Normal Alt 10 U/L 6-29 U/L Final [facility]: [address] [facility] 09/26/2016 Lipid Panel, Serum Normal Cholesterol, Total 192 mg/dL 125- 200 mg/dL Final [facility]: [address] [place] Normal HDL Cholesterol 59 mg/dL > or=46 mg/dL Final [facility]: [address] Normal Triglycerides 133 mg/dL <150 mg/dL Final [facility] [address] [facility] Normal LDL-cholesterol 106 mg/dL (calc) <130 mg/dL (calc) Final [facility]: [address] Normal Chol/hdlc Ratio 3.3 (calc) < or=5.0 (calc) Final [facility]: [address] Normal Non HDL Cholesterol 133 mg/dL (calc) Final [facility]: [address] [place] [address] 09/26/2016 TSH, Serum or Plasma Normal Tsh 0.91 mIU/L 0.40-4.50 mIU/L Final [facility]: [address] [facility] 09/26/2016 CBC W/ Auto Diff Normal White Blood Cell Count 5.1 thousand/uL 3.8-10.8 thousand/uL Final [facility]: [address] Normal Red Blood Cell Count 4.36 million/uL 3.80-5.10 million/uL Final [facility]: [address] Normal Hemoglobin 13.0 g/dL 11.7-15.5 g/dL Final [facility]: [address] Normal Hematocrit 38.7 % 35.0-45.0 % Final [facility]: [address] Normal Mcv 88.8 fL 80.0-100.0 fL Final [facility]: [address] [facility] Normal Mch 29.9 pg 27.0-33.0 pg Final [facility]: [address] Normal Mchc 33.7 g/dL 32.0-36.0 g/dL Final [facility]: [address] Normal Rdw 12.9 % 11.0-15.0 % Final [facility]: [address] [place] Normal Platelet Count 236 thousand/uL 140-400 thousand/uL Final [facility]: [address] [place] Normal Mpv 7.8 fL 7.5-11.5 fL Final [facility]: [address] [place] Normal Absolute Neutrophils 3534 cells/uL 8037-8183 cells/uL Final [facility]: [address] [facility] Normal Absolute Lymphocytes 1153 cells/uL 850-3900 cells/uL Final [facility]: [address] [facility] Normal Absolute Monocytes 311 cells/uL 200-950 cells/uL Final [facility]: [address] [place] [address] Normal Absolute Eosinophils 92 cells/uL 15-500 cells/uL Final [facility]: [address] Normal Absolute Basophils 10 cells/uL 0-200 cells/uL Final [facility]: [address] Normal Neutrophils 69.3 % Final [facility]: [address] Normal Lymphocytes 22.6 % Final [facility]: [address] Normal Monocytes 6.1 % Final [facility]: [address] Normal Eosinophils 1.8 % Final [facility]: [address] Normal Basophils 0.2 % Final [facility]: [address] 06/12/2016 Hepatitis C Virus RNA, Quant, PCR, Serum or Plasma Normal Hepatitis C Antibody non-reactive non-reactive Final [facility]: [address] Normal Signal to Cut-off 0.02 <1.00 Final [facility]: [address] [place] [address] 06/12/2016 Lipid Panel, Serum Hdl 53.0 mg/dL 40.0-60.0 mg/dL Final [facility]: [address] High Triglyceride 272.0 mg/dL 0.0-149.0 mg/dL Final [facility]: [address] VLDL Calc. 54.4 mg/dL Final [facility]: [address] [address], [place] cholesterol/HDL Ratio 3.7 mg/dL Final [facility]: [address] [address], [place] non-HDL Cholesterol Calc. 144.0 mg/dL 0.0-160.0 mg/dL Final [facility]: [address] [address], [place] Cholesterol 197.0 mg/dL 0.0-199.0 mg/dL Final [facility]: [address] [address], [place] LDL Calc. 89.6 mg/dL 0.0-130.0 mg/dL Final [facility]: [address] [address], [place] 12/31/2015 Lipid Panel, Serum No observation recorded. Past Encounters 12/04/2017 Acute Upper Respiratory Infection; Body Mass Index Less than 20; At Risk for Falls; Depression Screening Estee Tobar MD: [address] [place] [phone], Ph. 04/01/2017 Mixed Hyperlipidemia; Tachycardia; Adult Health Examination Barb Alberts MD: [address] [place] [phone], Ph. 03/25/2017 Herpes Zoster; Mixed Hyperlipidemia; Adult Health Examination Barb Alberts MD: [address] [place] [phone], Ph. 10/03/2016 Vertigo; Tachycardia; Mixed Hyperlipidemia; Adult Health Examination; Pneumococcal Vaccination Barb Alberts MD: [address] [place] [phone], Ph. 09/26/2016 Vertigo; Mixed Hyperlipidemia; Tachycardia; Adult Health Examination Barb Alberts MD: [address] [place] [phone], Ph. 06/26/2016 Mixed Hyperlipidemia; Tachycardia; Adult Health Examination Barb Alberts MD: [address] [place] [phone], Ph. 06/12/2016 Migraine with Aura; Pure Hypercholesterolemia; Adult Health Examination Barb Alberts MD: [place] [address], Ph. Social History Smoking Status Former Smoker Notes: QUIT:45 YRS AGO Vaccine List Vaccine Type influenza, high dose seasonal 06/02/2016 06/21/2017 pneumococcal conjugate PCV 13 10/03/20160.5 mL pneumococcal, unspecified formulation 04/21/2015 Tdap 09/10/2005 zoster 04/21/2015 Notes: per pt up to date on all vaccine's -12/04/2017-whitley Plan of Care Reminders Provider Appointments None recorded. Lab None recorded. Referral None recorded. Procedures None recorded. Surgeries None recorded. Imaging None recorded. Vitals 12/04/2017 10:15AM Est Patient Height Weight BMI Blood Pressure 5 ft 5.9 in 110 lbs 17.8 kg/m2 110/58 mm[Hg] 04/01/2017 10:00AM Est Patient Height Weight BMI Blood Pressure 5 ft 5.9 in 113 lbs 18.3 kg/m2 130/72 mm[Hg] 03/25/2017 08:15AM Work In Same Day Height Weight BMI Blood Pressure 5 ft 5.9 in 113 lbs 18.3 kg/m2 116/70 mm[Hg] 10/03/2016 10:45AM Est Patient Height Weight BMI Blood Pressure 5 ft 5.9 in 116 lbs 18.8 kg/m2 132/71 mm[Hg] 09/26/2016 08:15AM Est Patient Height Weight BMI Blood Pressure 5 ft 5.9 in 116 lbs 18.8 kg/m2 110/68 mm[Hg] 06/26/2016 01:45PM Est Patient Height Weight BMI Blood Pressure 5 ft 5.5 in 118 lbs 19.3 kg/m2 122/63 mm[Hg] 06/12/2016 01:45PM Est Patient Height Weight BMI Blood Pressure 5 ft 5.5 in 117 lbs 19.2 kg/m2 144/62 mm[Hg]
--- NOTE | 2018-12-08 08:30 | NUR ---
0830am Received ambulatory to prep bay #10 Ox4 ,Denies CP or SOB In for [facility] Dr Sánchez ,abnormal chek up Familys support at bedside Luciano and Vaishali Prepped Sam femoral sites. Has limb alert to rt arm and sensitivity to Vicodin with nausea. Also says has remote hx seizures. Vs and iv started per Susan MANCILLA.PPx4 DP/PT no signs pallor,neuromuscular issues or dysrhythmia. Currently has life vest in place. ds/rn
--- NOTE | 2018-12-08 10:41 | NUR ---
1041am Received pt s/p [facility] no intervention scheduled Pacer ICD on December [address] [facility] [address] De Jesus. Remains with Life Vest on Family at bedside. Denies c/o CP or SOB Monitor and vs stable. Ox4 Resp even and regular and un labored on room air. PPx4 Pd/Dp Abdomen soft and non-tender denies necessity to defecate or urinate. Iv changed to 1/2NS at 50cc/hr dial a flow site w/o s/s infiltration. POC discussed with family and Dr Sebastian ds/rn
--- NOTE | 2018-12-08 10:45 | NUR ---
1045 pt c/o anxious and wants to rest notified Dr Jaz sandoval to give Benedryl 25po given and pt resting post po intake of med no other issues of pallor,pressure or dysrhythmia. family at bedside.Side rails up, call light at bedside,bed brakes on. ds/rn
--- NOTE | 2018-12-08 12:30 | NUR ---
1230m co herrera medicated with tylenol 650pp with relief noted in 20mins Family remains at bedside comfort measures continued. No further signs of pressure, pallor or dysrhythmia.
--- NOTE | 2018-12-08 13:45 | NUR ---
1345pm c/o back discomfort Dr Sebastian notified Morphine ivp 2mg given slowly with relief 04/30 to 12/29 to low back
--- NOTE | 2018-12-08 16:14 | NUR ---
1600 at bedside HOB elevated and dressed and ready for dc explained POC and copies of dc papers given to family aware of importance of followup care. No issues pain, pallor,pressure or dysrhythmia. ds/rn
--- NOTE | 2018-12-08 16:19 | NUR ---
1619 Hob elevated denies c/o No issues pain, pallor,pressure or dysrhythmia. Rt groin site remain intact w/o hematoma. Left iv site removed no s/s infiltration Coban 2x2 [address] Pt assisted to bathroom with escort of Nancy [employer]ORING RO[employer] MAN
--- NOTE | 2018-12-08 16:30 | NUR ---
1630 Discharged home post void qs in bathroom. No gross sign pain,pallor,pressure or dysrhythmia. Pt has as drive.r Rt groin site w/o hematoma and dressing intact. Aware of POC and importance of f/o care Dr Sebastian and pacer ICD insertion on December [address] De Jesus at another facility.To car per w/c with [employer] escort . ds/rn
--- NOTE | 2018-12-09 10:51 | Operative Report ---
DATE OF PROCEDURE: SURGEON: Derik Sebastian MD PROCEDURES: 1. Left heart catheterization. 2. Selective coronary angiogram. 3. Left ventriculogram. INDICATION: Cardiomyopathy. ANESTHESIA: 2% lidocaine for local anesthesia, fentanyl for conscious sedation. BLOOD LOSS: 2 mL. DESCRIPTION OF PROCEDURE: After informed consent, the patient was brought to the cardiac catheterization laboratory and placed on table. Both groins were painted and draped in a sterile fashion. Lidocaine was injected in right groin for local anesthesia. Right femoral artery was accessed by Seldinger technique and a 5-Icelandic sheath was placed in right femoral artery. Left main artery was cannulated using a JL4 5-Icelandic catheter and coronary angiogram was performed and images were obtained in multiple views. Right coronary artery was cannulated using a 3DRC 5-Icelandic catheter and coronary angiogram was performed and images were obtained in multiple views. LV-gram was performed using a pigtail catheter. The patient tolerated the procedure without any complications. REPORT: 1. Left main; normal caliber, no significant stenosis. 2. Left anterior descending; normal caliber, no significant stenosis. 3. Left circumflex; normal caliber, no significant stenosis. 4. LV-gram, diffuse hypokinesis of the left ventricle is noted. 5. Overall ejection fraction is 20% to 25%. HEMODYNAMICS: Aortic pressure is 154/62, LV pressure is 152/6, LVEDP is 14. PLAN: ICD. Derik Sebastian MD SC/MODL /[id number]
== END | disposition home or self-care (01) ==
LOC: CATH LAB 07:48
DX: I11.9 Hypertensive heart disease without heart failure (principal); I43 Cardiomyopathy in diseases classified elsewhere; E78.5 Hyperlipidemia, unspecified; M81.0 Age-related osteoporosis without current pathological fracture; G43.909 Migraine, unspecified, not intractable, without status migrainosus; H40.9 Unspecified glaucoma; Z87.891 Personal history of nicotine dependence; Z82.49 Family history of ischemic heart disease and other diseases of the circulatory system; Z79.82 Long term (current) use of aspirin
CPT/HCPCS: 36415; 71046; 80053; 85025; 85610; 85730; 93005; 93458; J2001; J2270; J7030; Q9967; J2250

== ENCOUNTER → 2019-04-08 | Outpatient (CLI) | payer MEDICARE ==
[~2019-04-08] MED LIST changes: -ACETAMINOPHEN 325 MG TAB ONE; -DIPHENHYDRAMINE HCL 25 MG CAP ONE; -FENTANYL CITRATE/PF 100MCG/2 ML INJ ONE; -HEPARIN SOD/SOD CHLORIDE 2,000 ML ONE; -IOPAMIDOL 370 MG/ML 200 ML INFUS..BTL INJ ONE; -LIDOCAINE HCL 2% LOCAL 20 ML VIAL ONE; -MIDAZOLAM HCL 2 MG/2 ML VIAL ONE; -MORPHINE SULFATE INJ 4 MG/ML INJ 1ML ONE; -SODIUM CHLORIDE 0.45% 1,000 ML ONE; -SODIUM CHLORIDE 0.9% 1000ML 1,000 ML ONE; -VERAPAMIL HCL 2.5 MG/ML 2 ML VIAL ONE
--- NOTE | 2019-04-08 11:08 | Diagnostic Imaging Report ---
Chest, 2 views, 04/08/2019. History: Cough. Comparison: 12/06/2018. Findings: The cardiomediastinal silhouette and pulmonary vasculature are within normal limits. The lungs are clear without evidence of consolidation or pleural effusion. A new left subclavian AICD/pacer is present. Multiple surgical clips are again seen in the right axilla. There are no acute osseous or soft tissue abnormalities. Impression: No acute cardiopulmonary abnormality. Signed by: Gonzalo Muniz on 04/08/2019 11:04 AM
== END ==
LOC: RAD 10:19
PROVIDERS: ATTEND Internal Medicine
DX: I42.0 Dilated cardiomyopathy (principal)
CPT/HCPCS: 71046